=== PATIENT | female | born 2000 | race Caucasian/White ===

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

== ENCOUNTER → 2019-07-08 | Outpatient (CLI) | payer OTHER ==
--- NOTE | 2019-07-09 07:56 | ECGEPIP ---
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
== END ==
LOC: M EKG 16:21
DX: I45.6 Pre-excitation syndrome (principal)

== ENCOUNTER → 2020-02-12 | Outpatient (REF) | payer OTHER | LOC: M LAB REF 11:18 | PROVIDERS: ATTEND Physician Assistant | DX: Z11.59 Encounter for screening for other viral diseases (principal) ==

== ENCOUNTER → 2020-08-17 | Outpatient (CLI) | payer OTHER ==
--- NOTE | 2020-08-17 09:43 | REP ---
INDICATION: PAIN. COMPARISON: None. FINDINGS: The joint spaces are symmetric and relatively well maintained. There is no evidence of acute fracture or destructive osseous lesion. IMPRESSION: Negative. <Electronically signed by Miguel Redd > 08/17/20 0939
== END ==
LOC: M WUC 09:04
PROVIDERS: ATTEND Physician Assistant Medical
DX: M25.572 Pain in left ankle and joints of left foot (principal)

== ENCOUNTER → 2020-08-17 | Outpatient (CLI) | payer OTHER ==
--- NOTE | 2020-08-17 09:43 | REP ---
INDICATION: LEFT HIP PAIN. COMPARISON: None. TECHNIQUE: Frontal view of the pelvis with neutral and frog-lateral views of the right and left hip. FINDINGS: The right hemipelvis and right hip appear essentially age-appropriate and normal. The left hip including the iliac wing, acetabulum and femoral head demonstrate heterogeneous sclerotic changes, osteophyte formation, joint space narrowing, and possible old lytic lesion to the iliac bone. These findings are nonspecific and may be related to old injury or prior insult. Correlation is required. There is no evidence for acute fracture or dislocation. 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 No prior examinations are available for comparison. Findings appear nonacute and there is no evidence for fracture or dislocation. <Electronically signed by Raz Taveras > 08/17/20 [id number]
== END ==
LOC: M WUC 09:08
PROVIDERS: ATTEND Orthopaedic Surgery
DX: M25.552 Pain in left hip (principal)

== ENCOUNTER → 2023-07-25 | Outpatient (REF) | payer OTHER | LOC: M LAB REF 18:08 | PROVIDERS: ATTEND Physician Assistant Medical | DX: R53.83 Other fatigue (principal); F32.A Depression, unspecified ==